=== PATIENT | female | born 1955 | race African-American/Black ===

== ENCOUNTER → 2016-08-07 | Outpatient (CLI) | payer OTHER ==
[~2016-08-07] MED LIST: ACETAMINOPHEN325 M1 PO; ALAGESIC CAPSU1 EACH PO; ALER-CAP25 M2 PO; AMBIEN5 MG PO; AMLODIPINE BES2.5 MG PO; ASPIR 8181 M1 PO; ATIVAN1 MG PO; ATIVAN2 MG/1 ML IM; AZATHIOPRINE50 MG PO; B12 IM; BETIMOL 0.100 DROP/5 BOTH EYES; CALCIDOL8000 UNIT/ PO; CALCIUM ACETAT667 MG PO; CARVEDILOL25 MG PO; CATAPRES0.3 MG PO; CEROVITE237 ML PO; CERTA-VITE240 ML PO; CERTAVITE SR W1 EACH PO; CERTAVITE WITH1 EAC1 PO; CILOXAN 0.100 DROP/5 LEFT EYE; CIPRO500 MG PO; CLEARLAX510 GM PO; CLINDAMYCIN HC300 MG PO; COL-RITE100 M1 PO; COLACE50 MG PO; COUMADIN,JANTO7.5 MG PO; COUMADIN10 MG PO; COUMADIN3 MG PO; COUMADIN4 MG PO; COUMADIN5 MG; COUMADIN5 MG PO; COUMADIN7.5 MG PO; CYANOCOBALAM1000 MCG PO; CYMBALTA60 MG PO; Coumadin Protocol PO; Coumadin,Jantoven PO; Cymbalta PO; DANTROLENE SODI PO; DEPAKOTE ER (E250 MG PO; DEPAKOTE ER500 MG PO; DEPAKOTE250 MG PO; Depakote PO; EFFEXOR XR150 MG PO; ELAVIL10 MG PO; EMLA 30 GM30 GM TP; ESCITALOPRAM OX10 MG PO; FLECTOR 1.3%1 PATC1 TD; FLORICAL CAPSU1 EACH PO; FOLIC ACID PO; FUROSEMIDE80 MG PO; GLYCOPYRROLATE1 MG PO; HUMALOG100 UNIT/1 SC; HYDRALAZINE HCL50 MG PO; HYDROCHLOROTH12.5 M3 PO; HYDROXYZINE HCL25 MG PO; K-DUR20 MEQ PO; KLONOPIN0.5 M1 PO; KLONOPIN1 MG PO; LAMICTAL100 MG PO; LAMICTAL200 MG PO; LASIX10 MG/ML PO; LASIX20 MG/2 ML IM; LATANOPROST2.5 ML BOTH EYES; LAXATIVE SUPPOS10 MG PR; LEVEMIR100 UNIT/2 SC; LEXAPRO20 MG PO; LIDODERM 5% P1 PATCH TD; LOPRESSOR50 MG PO; LOSARTAN POTASS50 MG PO; LYRICA150 MG PO; LaMICtal PO; Levaquin PO; MAXIPIME1 GM IV; METHYLPREDNISOLO4 M1 PO; METOLAZONE5 MG PO; METOPROLOL TART50 MG PO; MILK OF MAGNESI10 ML PO; MOBIC15 MG PO; NAPROSYN500 MG PO; NEURONTIN100 MG PO; NEURONTIN300 MG PO; NORVASC5 MG PO; Neurontin PO; OXECTA5 MG PO; PAIN RELIE500 MG/15 PO; PLAVIX75 MG PO; PRAVACHOL40 MG PO; PRAVASTATIN SOD20 MG PO; PREDNISONE20 MG PO; PREDNISONE5 MG PO; PREPARATION H O28 GM PR; PROAIR HFA8.5 GM IH; PROMETHAZINE HC25 M1 PO; PROTONIX40 MG PO; QUESTRAN4 GM/PACKE PO; REGLAN10 MG/10 M PO; REMERON15 M2 PO; REMERON30 M2 PO; REPAN 50-325-41 EAC1 PO; RISPERDAL1 MG PO; ROBINUL1 MG PO; ROXICODONE5 MG PO; SENNA PLUS TAB1 EACH PO; SENNA S TABLET1 EACH PO; TEGRETOL-XR,CA400 MG PO; TEGRETOL100 MG/5 M PO; TEGRETOL200 MG PO; TEGretol PO; TRAMADOL HCL100 MG PO; TRAMADOL HCL50 MG PO; TUCKS1 EAC1 TP; TYLENOL REGULA325 MG PO; VENLAFAXINE HC150 M1 PO; VICODIN,LORT1 TABLET PO; VITAMIN B-1100 MG PO; VITAMIN D32000 UNIT PO; WARFARIN SODIU7.5 MG PO; WARFARIN SODIUM1 MG PO; WARFARIN SODIUM10 MG PO; Xanax PO; ZANAFLEX4 M1 PO; ZANTAC15 MG/ML PO; ZESTORETIC,P1 TABLET PO; ZIPRASIDONE HCL40 MG PO; ZOCOR10 MG; ZOFRAN ODT4 MG PO; ZOFRAN4 MG PO; ZONEGRAN100 M1 PO; ZONEGRAN100 MG PO; ZONISAMIDE100 MG PO; Zonegran PO; risperDAL PO
== END ==
LOC: RAD 11:00
DX: J98.11 Atelectasis (principal); I70.90 Unspecified atherosclerosis; M47.9 Spondylosis, unspecified; Z96.89 Presence of other specified functional implants
CPT/HCPCS: 71250

== ENCOUNTER 2017-01-03 11:58 | Inpatient (IN) | payer OTHER ==
[~2017-01-03] VITALS: Ht 162.6 cm; Wt 111.0 kg
[2017-01-03] VITALS (19 sets, daily range): BP systolic 79–140; BP diastolic 49–93
[2017-01-03 12:51] LABS: CHLORIDE 106 mEq/L (99-109); HEMATOCRIT 19.9 % (36.0-46.0); MCH 28.6 PG (29.0-34.0); MCHC 29.1 G/DL (30.0-36.0); MEAN PLAT.VOLUME 11.7 uM^3 (9.5-12.4); NRBC (%) 1.1 /100 WBC (0-0); PLATELET COUNT 350 K/uL (156-360); POTASSIUM 5.8 mEq/L (3.7-5.4); RBC DIS.WIDTH-CV 14.5 % (11.8-14.6); RBC DIS.WIDTH-SD 51.6 % (39-53); RED BLOOD COUNT 2.03 M/uL (3.80-5.20); SODIUM 138 mEq/L (136-147); WHITE BLOOD COUNT 15.8 K/uL (4.1-10.2)
[2017-01-03 12:52] LABS: CARBON DIOXIDE (BICARBONATE) 19.4 MEQ/L (20-31)
[2017-01-03 12:53] LABS: GLUCOSE 110 mg/dL (70-99)
[2017-01-03 12:54] LABS: ANION GAP 16 MEQ/L (2-14)
[2017-01-03 12:57] LABS: GFR ESTIMATE (CALCULATED) 18 mL/min/; UREA NITROGEN (BUN) 48 mg/dL (9-23)
[2017-01-03 13:03] LABS: TROP-I INTERPRETATION INDETERMINATE; TROPONIN-I 0.48 ng/mL (0.0-0.30)
[2017-01-03 13:43] LABS: ADD MIUA? YES; BILIRUBIN NEGATIVE; BLOOD NEGATIVE; COLOR AMBER ((YELLOW)); GLUCOSE (STRIP) NEGATIVE; KETONES NEGATIVE; LEUKOCYTES TRACE; NITRITE NEGATIVE; PROTEIN (STRIP) NEGATIVE; SPECIFIC GRAVITY 1.021 (1.000-1.030)
[2017-01-03 13:51] LABS: BACTERIA RARE /HPF; CALCIUM OXALATE CRYSTALS 3+ /HPF; EPITHELIAL CELLS RARE /HPF; MUCUS TRACE /LPF; UCUL ADDED? YES
[2017-01-03 14:16] LABS: INTER. NORMALIZED RATIO 1.7; PROTHROMBIN TIME 18.5 SEC (10.2-12.9)
[2017-01-03 14:19] LABS: PTT 96.2 SEC (25-37)
[2017-01-03 14:36] LABS: POINT-OF-CARE METER ID UU13113747
[2017-01-03] MEDS ORDERED: NEURONTIN100 MG PO (15:22)
[2017-01-03] MEDS ORDERED: RISPERDAL3 MG PO (15:23)
[2017-01-03] MEDS ORDERED: ZONEGRAN100 MG PO (15:27)
[2017-01-03] MEDS ORDERED: EFFEXOR75 MG PO (15:27)
[2017-01-03] MEDS ORDERED: PRAVACHOL20 MG PO (15:28)
[2017-01-03] MEDS ORDERED: LOVENOX120 MG/0.8 SC (15:35)
[2017-01-03] MEDS ORDERED: MYSOLINE50 MG PO (15:37)
[2017-01-03] MEDS ORDERED: IMURAN50 MG PO (15:37)
[2017-01-03] MEDS ORDERED: ROXICODONE5 MG PO (15:38)
[2017-01-03] MEDS ORDERED: NORVASC5 MG PO (15:42)
[2017-01-03] MEDS ORDERED: DIAZEPAM2 MG PO (15:43)
[2017-01-03] MEDS ORDERED: ARTIFICIAL TEAR15 M1 BOTH EYES (15:44)
[2017-01-03] MEDS ORDERED: APRESOLINE25 MG PO (15:45)
[2017-01-03 17:53] LABS: EOSINOPHIL (%) 0 % (0-5); HEMATOCRIT 23.8 % (36.0-46.0); IMMATURE GRANULOCYTE (%) 1.3 % (0.0-0.7); IMMATURE GRANULOCYTE COUNT 0.3 K/uL; INSTRUMENT ABS NEUTROPHIL CT 20.2 K/uL; LYMPHOCYTE COUNT 0.9 K/uL (1.0-2.8); MCH 30.3 PG (29.0-34.0); MCHC 30.7 G/DL (30.0-36.0); MCV 98.8 FL (83-99); MEAN PLAT.VOLUME 11.6 uM^3 (9.5-12.4); MONOCYTE (%) 12.6 % (3-12); MONOCYTE COUNT 3.1 K/uL (0-0.8); NEUTROPHIL (%) 82.4 % (45-76); NEUTROPHIL COUNT 20.2 K/uL (1.8-6.4); NRBC (%) 0.8 /100 WBC (0-0); PLATELET COUNT 296 K/uL (156-360); RBC DIS.WIDTH-CV 14.8 % (11.8-14.6); RBC DIS.WIDTH-SD 53.2 % (39-53); RED BLOOD COUNT 2.41 M/uL (3.80-5.20); WHITE BLOOD COUNT 24.5 K/uL (4.1-10.2)
[2017-01-03 18:01] LABS: FIBRINOGEN 710 mg/dL (150-450)
[2017-01-03 18:10] LABS: ALKALINE PHOSPHATASE 46 IU/L (3-129); ANION GAP 16 MEQ/L (2-14); CHLORIDE 107 MEQ/L (99-109); GLUCOSE 129 mg/dL (70-99); POTASSIUM 5.2 MEQ/L (3.7-5.4); SAMPLE HEMOLYSIS CHECK 0; SAMPLE ICTERIC CHECK 0; SAMPLE LIPEMIA CHECK 0; SODIUM 139 MEQ/L (136-147); TOTAL BILIRUBIN 0.5 MG/DL (0.0-1.0); UREA NITROGEN (BUN) 47 mg/dL (9-23)
[2017-01-03 18:15] LABS: GFR ESTIMATE (CALCULATED) 24 mL/min/
[2017-01-03 18:21] LABS: METH RESISTANT S AUREUS PCR NEGATIVE (NEGATIVE)
[2017-01-03 18:22] LABS: PROBE CHECK PASS; SPECIMEN PROCESSING CONTROL PASS
[2017-01-03 18:39] LABS: INTER. NORMALIZED RATIO 1.5; PROTHROMBIN TIME 16.6 SEC (10.2-12.9)
[2017-01-03 18:52] LABS: PTT 41.4 SEC (25-37)
[2017-01-03 18:54] LABS: POINT-OF-CARE METER ID UU13113731; POINT-OF-CARE USER ID 609231305
[2017-01-03 21:43] LABS: HEMATOCRIT 29.9 % (36.0-46.0); MCH 30.1 PG (29.0-34.0); MCHC 30.8 G/DL (30.0-36.0); MCV 97.7 FL (83-99); NRBC (%) 0.8 /100 WBC (0-0); PLATELET COUNT 303 K/uL (156-360); RBC DIS.WIDTH-CV 14.9 % (11.8-14.6); RBC DIS.WIDTH-SD 53.2 % (39-53); WHITE BLOOD COUNT 21.4 K/uL (4.1-10.2)
[2017-01-03 21:50] LABS: RED BLOOD COUNT 3.06 M/uL (3.80-5.20)
[2017-01-03 22:20] LABS: ANION GAP 16 MEQ/L (2-14); CHLORIDE 108 MEQ/L (99-109); GFR ESTIMATE (CALCULATED) 27 mL/min/; GLUCOSE 121 mg/dL (70-99); POTASSIUM 5.2 MEQ/L (3.7-5.4); SAMPLE HEMOLYSIS CHECK 0; SAMPLE ICTERIC CHECK 0; SAMPLE LIPEMIA CHECK 0; SODIUM 141 MEQ/L (136-147); UREA NITROGEN (BUN) 47 mg/dL (9-23)
[2017-01-03 22:24] LABS: ERTH.SED.RATE 78 MM/HR (0-30)
[2017-01-04] VITALS (35 sets, daily range): BP systolic 110–167; BP diastolic 51–88
[2017-01-04 00:02] LABS: POINT-OF-CARE METER ID UU13113748; POINT-OF-CARE USER ID LABHNS84
[2017-01-04 05:57] LABS: ANION GAP 11 MEQ/L (2-14); CHLORIDE 111 MEQ/L (99-109); GFR ESTIMATE (CALCULATED) 49 mL/min/; GLUCOSE 121 mg/dL (70-99); SAMPLE HEMOLYSIS CHECK 0; SAMPLE ICTERIC CHECK 0; SAMPLE LIPEMIA CHECK 0; SODIUM 144 MEQ/L (136-147); UREA NITROGEN (BUN) 42 mg/dL (9-23)
[2017-01-04 06:21] LABS: EOSINOPHIL (%) 0 % (0-5); HEMATOCRIT 21.9 % (36.0-46.0); IMMATURE GRANULOCYTE (%) 0.9 % (0.0-0.7); IMMATURE GRANULOCYTE COUNT 0.2 K/uL; INSTRUMENT ABS NEUTROPHIL CT 15.4 K/uL; LYMPHOCYTE COUNT 0.6 K/uL (1.0-2.8); MCH 29.7 PG (29.0-34.0); MCHC 31.5 G/DL (30.0-36.0); MCV 94.4 FL (83-99); MEAN PLAT.VOLUME 12.5 uM^3 (9.5-12.4); MONOCYTE (%) 10.2 % (3-12); MONOCYTE COUNT 1.8 K/uL (0-0.8); NEUTROPHIL (%) 85.4 % (45-76); NEUTROPHIL COUNT 15.4 K/uL (1.8-6.4); NRBC (%) 1.9 /100 WBC (0-0); PLATELET COUNT 242 K/uL (156-360); RED BLOOD COUNT 2.32 M/uL (3.80-5.20)
[2017-01-04 06:55] LABS: INTER. NORMALIZED RATIO 1.3; PROTHROMBIN TIME 14.3 SEC (10.2-12.9)
[2017-01-04 06:58] LABS: PTT 37.4 SEC (25-37)
[2017-01-04 07:41] LABS: Estimated Average Glucose 114 mg/dL (70-123); HEMOGLOBIN A1c (GLYCOHEMOGLOB) 5.6 % HGB (Below 5.7)
[2017-01-04 12:11] LABS: POINT-OF-CARE METER ID UU14174217
[2017-01-04 14:51] LABS: HEMATOCRIT 25.7 % (36.0-46.0); MCH 30.7 PG (29.0-34.0); MCHC 33.5 G/DL (30.0-36.0); MCV 91.8 FL (83-99); MEAN PLAT.VOLUME 11.2 uM^3 (9.5-12.4); NRBC (%) 2.9 /100 WBC (0-0); PLATELET COUNT 232 K/uL (156-360); RBC DIS.WIDTH-CV 15.1 % (11.8-14.6); RBC DIS.WIDTH-SD 50.5 % (39-53); WHITE BLOOD COUNT 14.6 K/uL (4.1-10.2)
[2017-01-04 15:29] LABS: ANION GAP 9 MEQ/L (2-14); CHLORIDE 112 MEQ/L (99-109); GLUCOSE 114 mg/dL (70-99); POTASSIUM 4.8 MEQ/L (3.7-5.4); SAMPLE HEMOLYSIS CHECK 0; SAMPLE ICTERIC CHECK 0; SAMPLE LIPEMIA CHECK 0; SODIUM 145 MEQ/L (136-147); UREA NITROGEN (BUN) 33 mg/dL (9-23)
[2017-01-04 15:30] LABS: GFR ESTIMATE (CALCULATED) > 59 mL/min/; VANCOMYCIN, TROUGH 5.6 MCG/ML (10-20)
[2017-01-04 17:47] LABS: INTER. NORMALIZED RATIO 1.2; PROTHROMBIN TIME 13.7 SEC (10.2-12.9)
[2017-01-04 17:49] LABS: PTT 33.2 SEC (25-37)
[2017-01-04 18:38] LABS: POINT-OF-CARE METER ID UU14314082
[2017-01-04 22:29] LABS: POINT-OF-CARE METER ID UU14314082; POINT-OF-CARE USER ID LABHNS84
[2017-01-04 23:27] LABS: HEMATOCRIT 22.6 % (36.0-46.0); MCH 29.4 PG (29.0-34.0); MCHC 32.7 G/DL (30.0-36.0); MCV 89.7 FL (83-99); MEAN PLAT.VOLUME 10.6 uM^3 (9.5-12.4); NRBC (%) 2.9 /100 WBC (0-0); PLATELET COUNT 215 K/uL (156-360); RBC DIS.WIDTH-CV 15.5 % (11.8-14.6); RBC DIS.WIDTH-SD 50.1 % (39-53); RED BLOOD COUNT 2.52 M/uL (3.80-5.20); WHITE BLOOD COUNT 13.7 K/uL (4.1-10.2)
[2017-01-04 23:35] LABS: POINT-OF-CARE METER ID UU14314082; POINT-OF-CARE USER ID LABHNS84
[2017-01-05] VITALS (23 sets, daily range): BP systolic 124–182; BP diastolic 69–100
[2017-01-05 05:59] LABS: EOSINOPHIL (%) 0.1 % (0-5); HEMATOCRIT 21.4 % (36.0-46.0); IMMATURE GRANULOCYTE (%) 0.8 % (0.0-0.7); IMMATURE GRANULOCYTE COUNT 0.1 K/uL; INSTRUMENT ABS NEUTROPHIL CT 11.4 K/uL; LYMPHOCYTE COUNT 0.5 K/uL (1.0-2.8); MCH 30.9 PG (29.0-34.0); MCHC 33.6 G/DL (30.0-36.0); MCV 91.8 FL (83-99); MEAN PLAT.VOLUME 11.4 uM^3 (9.5-12.4); MONOCYTE (%) 8.2 % (3-12); MONOCYTE COUNT 1.1 K/uL (0-0.8); NEUTROPHIL COUNT 11.4 K/uL (1.8-6.4); NRBC (%) 2.5 /100 WBC (0-0); PLATELET COUNT 221 K/uL (156-360); RBC DIS.WIDTH-CV 15.9 % (11.8-14.6); RBC DIS.WIDTH-SD 52.3 % (39-53); RED BLOOD COUNT 2.33 M/uL (3.80-5.20); WHITE BLOOD COUNT 13.1 K/uL (4.1-10.2)
[2017-01-05 06:42] LABS: ANION GAP 9 MEQ/L (2-14); CHLORIDE 115 MEQ/L (99-109); GFR ESTIMATE (CALCULATED) > 59 mL/min/; GLUCOSE 103 mg/dL (70-99); POTASSIUM 4.6 MEQ/L (3.7-5.4); SAMPLE HEMOLYSIS CHECK 0; SAMPLE ICTERIC CHECK 0; SAMPLE LIPEMIA CHECK 0; SODIUM 147 MEQ/L (136-147); UREA NITROGEN (BUN) 23 mg/dL (9-23)
[2017-01-05 11:28] LABS: POINT-OF-CARE METER ID UU14162636
[2017-01-05 17:08] LABS: POINT-OF-CARE METER ID UU13113803
[2017-01-05 20:03] LABS: INTER. NORMALIZED RATIO 1.2; PROTHROMBIN TIME 12.7 SEC (10.2-12.9); PTT 33.8 SEC (25-37)
[2017-01-05 20:22] LABS: HEMATOCRIT 24.4 % (36.0-46.0); MCV 90.7 FL (83-99)
[2017-01-05 22:34] LABS: POINT-OF-CARE METER ID UU14314083; POINT-OF-CARE USER ID RADDRS44
[2017-01-06] VITALS (8 sets, daily range): BP systolic 95–142; BP diastolic 53–73
[2017-01-06 05:14] LABS: EOSINOPHIL (%) 0.2 % (0-5); HEMATOCRIT 24.8 % (36.0-46.0); IMMATURE GRANULOCYTE (%) 0.6 % (0.0-0.7); IMMATURE GRANULOCYTE COUNT 0.1 K/uL; INSTRUMENT ABS NEUTROPHIL CT 8.4 K/uL; LYMPHOCYTE COUNT 0.6 K/uL (1.0-2.8); MCH 30.4 PG (29.0-34.0); MCHC 33.5 G/DL (30.0-36.0); MCV 90.8 FL (83-99); MONOCYTE (%) 9.7 % (3-12); NEUTROPHIL (%) 83.8 % (45-76); NEUTROPHIL COUNT 8.4 K/uL (1.8-6.4); NRBC (%) 1.8 /100 WBC (0-0); PLATELET COUNT 184 K/uL (156-360); RBC DIS.WIDTH-CV 16.7 % (11.8-14.6); RBC DIS.WIDTH-SD 53.7 % (39-53); RED BLOOD COUNT 2.73 M/uL (3.80-5.20); WHITE BLOOD COUNT 10.1 K/uL (4.1-10.2)
[2017-01-06 05:45] LABS: ANION GAP 11 MEQ/L (2-14); CHLORIDE 108 MEQ/L (99-109); GFR ESTIMATE (CALCULATED) > 59 mL/min/; GLUCOSE 92 mg/dL (70-99); MAGNESIUM 1.9 mg/dl (1.3-2.7); SAMPLE HEMOLYSIS CHECK 0; SAMPLE ICTERIC CHECK 0; SAMPLE LIPEMIA CHECK 0; SODIUM 142 MEQ/L (136-147); UREA NITROGEN (BUN) 14 mg/dL (9-23)
[2017-01-06 07:47] LABS: ALKALINE PHOSPHATASE 47 IU/L (3-129); ANION GAP 10 MEQ/L (2-14); CHLORIDE 109 MEQ/L (99-109); DIRECT BILIRUBIN 0.1 mg/dL (0.0-0.3); GFR ESTIMATE (CALCULATED) > 59 mL/min/; GLUCOSE 90 mg/dL (70-99); POTASSIUM 4.1 MEQ/L (3.7-5.4); SODIUM 142 MEQ/L (136-147); UREA NITROGEN (BUN) 14 mg/dL (9-23)
[2017-01-06 07:48] LABS: TOTAL BILIRUBIN 0.7 MG/DL (0.0-1.0)
[2017-01-06 12:28] LABS: POINT-OF-CARE METER ID UU13113731
[2017-01-06 17:45] LABS: POINT-OF-CARE METER ID UU13113803
[2017-01-06 17:49] LABS: INTER. NORMALIZED RATIO 1.1; PROTHROMBIN TIME 11.8 SEC (10.2-12.9)
[2017-01-06 17:52] LABS: PTT 27.8 SEC (25-37)
[2017-01-06 20:50] LABS: HEMATOCRIT 25.7 % (36.0-46.0); MCV 92.8 FL (83-99)
[2017-01-06 21:54] LABS: POINT-OF-CARE METER ID UU13113731
[2017-01-07 03:51] VITALS: BP 120/64
[2017-01-07 05:51] LABS: EOSINOPHIL (%) 0.6 % (0-5); EOSINOPHIL COUNT 0.1 K/uL (0-0.3); HEMATOCRIT 25.4 % (36.0-46.0); IMMATURE GRANULOCYTE (%) 0.8 % (0.0-0.7); IMMATURE GRANULOCYTE COUNT 0.1 K/uL; INSTRUMENT ABS NEUTROPHIL CT 6.9 K/uL; LYMPHOCYTE COUNT 0.6 K/uL (1.0-2.8); MCH 29.9 PG (29.0-34.0); MCHC 32.3 G/DL (30.0-36.0); MCV 92.7 FL (83-99); MEAN PLAT.VOLUME 11.3 uM^3 (9.5-12.4); MONOCYTE (%) 10.2 % (3-12); MONOCYTE COUNT 0.9 K/uL (0-0.8); NEUTROPHIL (%) 81.3 % (45-76); NEUTROPHIL COUNT 6.9 K/uL (1.8-6.4); NRBC (%) 1.1 /100 WBC (0-0); PLATELET COUNT 206 K/uL (156-360); RBC DIS.WIDTH-CV 16.4 % (11.8-14.6); RED BLOOD COUNT 2.74 M/uL (3.80-5.20); WHITE BLOOD COUNT 8.4 K/uL (4.1-10.2)
[2017-01-07 06:18] LABS: ANION GAP 8 MEQ/L (2-14); CHLORIDE 109 MEQ/L (99-109); GFR ESTIMATE (CALCULATED) > 59 mL/min/; GLUCOSE 88 mg/dL (70-99); MAGNESIUM 1.9 mg/dl (1.3-2.7); SAMPLE HEMOLYSIS CHECK 0; SAMPLE ICTERIC CHECK 0; SAMPLE LIPEMIA CHECK 0; SODIUM 143 MEQ/L (136-147); UREA NITROGEN (BUN) 12 mg/dL (9-23)
[2017-01-07 06:59] LABS: POINT-OF-CARE METER ID UU14208750
[2017-01-07 07:35] VITALS: BP 126/66
[2017-01-07 11:25] VITALS: BP 128/60
[2017-01-07 12:46] LABS: POINT-OF-CARE METER ID UU14314084
[2017-01-07 15:38] VITALS: BP 118/67; BP 99/60
[2017-01-07 16:47] LABS: POINT-OF-CARE METER ID UU14314084
[2017-01-07 17:58] LABS: INTER. NORMALIZED RATIO 1.1; PROTHROMBIN TIME 12.1 SEC (10.2-12.9)
[2017-01-07 18:01] LABS: PTT 27.6 SEC (25-37)
[2017-01-07 19:59] VITALS: BP 100/52
[2017-01-07 22:24] LABS: POINT-OF-CARE METER ID UU14208750
[2017-01-08] VITALS (7 sets, daily range): BP systolic 108–127; BP diastolic 50–70
[2017-01-08 06:35] LABS: POINT-OF-CARE METER ID UU14314084
[2017-01-08 07:13] LABS: EOSINOPHIL (%) 1.1 % (0-5); EOSINOPHIL COUNT 0.1 K/uL (0-0.3); HEMATOCRIT 25.5 % (36.0-46.0); IMMATURE GRANULOCYTE (%) 0.8 % (0.0-0.7); IMMATURE GRANULOCYTE COUNT 0.1 K/uL; INSTRUMENT ABS NEUTROPHIL CT 6.7 K/uL; LYMPHOCYTE COUNT 0.5 K/uL (1.0-2.8); MCH 28.6 PG (29.0-34.0); MCV 92.4 FL (83-99); MEAN PLAT.VOLUME 11.4 uM^3 (9.5-12.4); NEUTROPHIL (%) 79.6 % (45-76); NEUTROPHIL COUNT 6.7 K/uL (1.8-6.4); NRBC (%) 0.6 /100 WBC (0-0); PLATELET COUNT 235 K/uL (156-360); RBC DIS.WIDTH-CV 15.8 % (11.8-14.6); RBC DIS.WIDTH-SD 52.3 % (39-53); RED BLOOD COUNT 2.76 M/uL (3.80-5.20); WHITE BLOOD COUNT 8.5 K/uL (4.1-10.2)
[2017-01-08 07:31] LABS: ANION GAP 8 MEQ/L (2-14); CHLORIDE 106 MEQ/L (99-109); GFR ESTIMATE (CALCULATED) > 59 mL/min/; GLUCOSE 92 mg/dL (70-99); POTASSIUM 3.9 MEQ/L (3.7-5.4); SAMPLE HEMOLYSIS CHECK 0; SAMPLE ICTERIC CHECK 0; SAMPLE LIPEMIA CHECK 0; SODIUM 139 MEQ/L (136-147); UREA NITROGEN (BUN) 10 mg/dL (9-23)
[2017-01-08 11:06] LABS: POINT-OF-CARE METER ID UU14314084; POINT-OF-CARE USER ID PUTDRM
[2017-01-08 15:57] LABS: POINT-OF-CARE METER ID UU14314084; POINT-OF-CARE USER ID PUTDRM
[2017-01-08 21:17] LABS: POINT-OF-CARE METER ID UU14314084
[2017-01-09 03:39] VITALS: BP 117/63
[2017-01-09 05:48] LABS: EOSINOPHIL (%) 0.9 % (0-5); EOSINOPHIL COUNT 0.1 K/uL (0-0.3); HEMATOCRIT 24.5 % (36.0-46.0); IMMATURE GRANULOCYTE (%) 1.3 % (0.0-0.7); IMMATURE GRANULOCYTE COUNT 0.1 K/uL; INSTRUMENT ABS NEUTROPHIL CT 6.9 K/uL; LYMPHOCYTE COUNT 0.7 K/uL (1.0-2.8); MCH 28.9 PG (29.0-34.0); MCV 93.2 FL (83-99); MEAN PLAT.VOLUME 11.7 uM^3 (9.5-12.4); NEUTROPHIL (%) 78.3 % (45-76); NEUTROPHIL COUNT 6.9 K/uL (1.8-6.4); NRBC (%) 0.5 /100 WBC (0-0); PLATELET COUNT 266 K/uL (156-360); RBC DIS.WIDTH-CV 15.4 % (11.8-14.6); RBC DIS.WIDTH-SD 50.6 % (39-53); RED BLOOD COUNT 2.63 M/uL (3.80-5.20); WHITE BLOOD COUNT 8.8 K/uL (4.1-10.2)
[2017-01-09 05:54] LABS: POINT-OF-CARE METER ID UU14314084
[2017-01-09 06:13] LABS: ANION GAP 8 MEQ/L (2-14); CHLORIDE 107 MEQ/L (99-109); GFR ESTIMATE (CALCULATED) > 59 mL/min/; GLUCOSE 85 mg/dL (70-99); POTASSIUM 3.7 MEQ/L (3.7-5.4); SAMPLE HEMOLYSIS CHECK 0; SAMPLE ICTERIC CHECK 0; SAMPLE LIPEMIA CHECK 0; SODIUM 140 MEQ/L (136-147); UREA NITROGEN (BUN) 8 mg/dL (9-23)
[2017-01-09 08:21] VITALS: BP 108/58
[2017-01-09 12:06] LABS: POINT-OF-CARE METER ID UU14314084
[2017-01-09 16:30] VITALS: BP 102/58
[2017-01-09 16:42] LABS: POINT-OF-CARE METER ID UU14314084
[2017-01-09 22:02] LABS: POINT-OF-CARE METER ID UU14314084
[2017-01-10 00:14] VITALS: BP 134/65
[2017-01-10 07:15] LABS: MCH 28.7 PG (29.0-34.0); MCHC 30.4 G/DL (30.0-36.0); MCV 94.5 FL (83-99); MEAN PLAT.VOLUME 12.1 uM^3 (9.5-12.4); NRBC (%) 0.3 /100 WBC (0-0); PLATELET COUNT 327 K/uL (156-360); RBC DIS.WIDTH-CV 15.2 % (11.8-14.6); RBC DIS.WIDTH-SD 51.1 % (39-53); RED BLOOD COUNT 2.54 M/uL (3.80-5.20); WHITE BLOOD COUNT 9.3 K/uL (4.1-10.2)
[2017-01-10 08:43] LABS: POINT-OF-CARE METER ID UU14314084
[2017-01-10 08:44] VITALS: BP 110/58
[2017-01-10 12:00] LABS: POINT-OF-CARE METER ID UU14314084
[2017-01-10 13:13] VITALS: BP 102/54
[2017-01-10 15:15] LABS: POINT-OF-CARE METER ID UU14314084
[2017-01-10 15:53] VITALS: BP 128/58
[2017-01-10 21:29] LABS: POINT-OF-CARE METER ID UU14208750
[2017-01-10 23:48] VITALS: BP 110/58
[2017-01-11 06:30] LABS: POINT-OF-CARE METER ID UU14208750
[2017-01-11 07:12] LABS: EOSINOPHIL (%) 0.8 % (0-5); EOSINOPHIL COUNT 0.1 K/uL (0-0.3); HEMATOCRIT 24.7 % (36.0-46.0); IMMATURE GRANULOCYTE COUNT 0.2 K/uL; INSTRUMENT ABS NEUTROPHIL CT 8.1 K/uL; LYMPHOCYTE COUNT 0.7 K/uL (1.0-2.8); MCHC 31.6 G/DL (30.0-36.0); MEAN PLAT.VOLUME 10.7 uM^3 (9.5-12.4); MONOCYTE (%) 11.4 % (3-12); MONOCYTE COUNT 1.2 K/uL (0-0.8); NEUTROPHIL COUNT 8.1 K/uL (1.8-6.4); NRBC (%) 0.3 /100 WBC (0-0); PLATELET COUNT 403 K/uL (156-360); RBC DIS.WIDTH-CV 15.3 % (11.8-14.6); RBC DIS.WIDTH-SD 51.9 % (39-53); WHITE BLOOD COUNT 10.3 K/uL (4.1-10.2)
[2017-01-11 08:01] VITALS: BP 126/68
[2017-01-11 15:58] VITALS: BP 122/64
[2017-01-11 16:37] LABS: POINT-OF-CARE METER ID UU14208750
[2017-01-11 22:10] LABS: POINT-OF-CARE METER ID UU14208750
[2017-01-11 23:20] VITALS: BP 120/75
[2017-01-12 06:28] LABS: POINT-OF-CARE METER ID UU14208750
[2017-01-12 07:24] LABS: EOSINOPHIL COUNT 0.1 K/uL (0-0.3); HEMATOCRIT 25.8 % (36.0-46.0); IMMATURE GRANULOCYTE (%) 1.5 % (0.0-0.7); IMMATURE GRANULOCYTE COUNT 0.2 K/uL; INSTRUMENT ABS NEUTROPHIL CT 8.1 K/uL; LYMPHOCYTE COUNT 0.7 K/uL (1.0-2.8); MCH 28.6 PG (29.0-34.0); MCHC 30.2 G/DL (30.0-36.0); MCV 94.5 FL (83-99); MONOCYTE (%) 10.6 % (3-12); MONOCYTE COUNT 1.1 K/uL (0-0.8); NEUTROPHIL COUNT 8.1 K/uL (1.8-6.4); NRBC (%) 0.2 /100 WBC (0-0); PLATELET COUNT 438 K/uL (156-360); RBC DIS.WIDTH-CV 15.3 % (11.8-14.6); RBC DIS.WIDTH-SD 51.8 % (39-53); RED BLOOD COUNT 2.73 M/uL (3.80-5.20); WHITE BLOOD COUNT 10.1 K/uL (4.1-10.2)
[2017-01-12 08:22] VITALS: BP 115/55
[2017-01-12 12:21] LABS: POINT-OF-CARE METER ID UU14208750
[2017-01-12 16:13] VITALS: BP 118/58
[2017-01-12 17:10] LABS: POINT-OF-CARE METER ID UU14208750
[2017-01-12 21:45] LABS: POINT-OF-CARE METER ID UU14208750
[2017-01-13 00:20] VITALS: BP 141/60
[2017-01-13 06:34] LABS: POINT-OF-CARE METER ID UU14208750
[2017-01-13 07:15] LABS: EOSINOPHIL COUNT 0.1 K/uL (0-0.3); HEMATOCRIT 25.9 % (36.0-46.0); IMMATURE GRANULOCYTE (%) 1.4 % (0.0-0.7); IMMATURE GRANULOCYTE COUNT 0.1 K/uL; INSTRUMENT ABS NEUTROPHIL CT 8.1 K/uL; LYMPHOCYTE COUNT 0.7 K/uL (1.0-2.8); MCH 28.6 PG (29.0-34.0); MCHC 30.1 G/DL (30.0-36.0); MCV 94.9 FL (83-99); MONOCYTE (%) 9.5 % (3-12); NEUTROPHIL COUNT 8.1 K/uL (1.8-6.4); PLATELET COUNT 470 K/uL (156-360); RBC DIS.WIDTH-CV 15.3 % (11.8-14.6); RBC DIS.WIDTH-SD 51.5 % (39-53); RED BLOOD COUNT 2.73 M/uL (3.80-5.20)
[2017-01-13 07:39] VITALS: BP 110/60
[2017-01-13 11:53] LABS: POINT-OF-CARE METER ID UU14208750
[2017-01-13 16:00] LABS: POINT-OF-CARE METER ID UU14208750
[2017-01-13 16:12] VITALS: BP 112/63
[2017-01-13 21:06] LABS: POINT-OF-CARE METER ID UU14208750
[2017-01-13 23:31] VITALS: BP 110/59
[2017-01-14 06:49] LABS: POINT-OF-CARE METER ID UU14208750
[2017-01-14 08:29] LABS: HEMATOCRIT 25.6 % (36.0-46.0); MCH 29.5 PG (29.0-34.0); MCHC 30.9 G/DL (30.0-36.0); MCV 95.5 FL (83-99); MEAN PLAT.VOLUME 10.9 uM^3 (9.5-12.4); PLATELET COUNT 514 K/uL (156-360); RBC DIS.WIDTH-CV 15.7 % (11.8-14.6); RBC DIS.WIDTH-SD 53.8 % (39-53); RED BLOOD COUNT 2.68 M/uL (3.80-5.20); WHITE BLOOD COUNT 9.5 K/uL (4.1-10.2)
[2017-01-14 09:00] VITALS: BP 120/70
[2017-01-14 11:36] LABS: POINT-OF-CARE METER ID UU14162508
[2017-01-14 11:37] LABS: ANION GAP 7 MEQ/L (2-14); CHLORIDE 107 MEQ/L (99-109); GFR ESTIMATE (CALCULATED) > 59 mL/min/; GLUCOSE 96 mg/dL (70-99); POTASSIUM 3.4 MEQ/L (3.7-5.4); SAMPLE HEMOLYSIS CHECK 0; SAMPLE ICTERIC CHECK 0; SAMPLE LIPEMIA CHECK 0; SODIUM 140 MEQ/L (136-147); UREA NITROGEN (BUN) 7 mg/dL (9-23)
[2017-01-14 15:53] VITALS: BP 116/70
[2017-01-14 15:57] LABS: INTER. NORMALIZED RATIO 1.3
[2017-01-14 16:43] LABS: POINT-OF-CARE METER ID UU14162508
[2017-01-14 23:35] LABS: POINT-OF-CARE METER ID UU14208750
[2017-01-14 23:41] VITALS: BP 120/66
[2017-01-15 06:05] LABS: POINT-OF-CARE METER ID UU14208750
[2017-01-15 08:05] VITALS: BP 136/63
[2017-01-15] MEDS ORDERED: LOVENOX100 MG/1 M SC (11:17)
[2017-01-15 11:18] LABS: HEMATOCRIT 26.1 % (36.0-46.0); MCH 29.7 PG (29.0-34.0); MCHC 30.7 G/DL (30.0-36.0); PLATELET COUNT 493 K/uL (156-360); RBC DIS.WIDTH-CV 15.5 % (11.8-14.6); RBC DIS.WIDTH-SD 53.2 % (39-53); RED BLOOD COUNT 2.69 M/uL (3.80-5.20); WHITE BLOOD COUNT 10.5 K/uL (4.1-10.2)
[2017-01-15 11:20] LABS: HEMATOCRIT 26.1 % (36.0-46.0); MCH 29.7 PG (29.0-34.0); MCHC 30.7 G/DL (30.0-36.0); PLATELET COUNT 493 K/uL (156-360); RBC DIS.WIDTH-CV 15.5 % (11.8-14.6); RBC DIS.WIDTH-SD 53.2 % (39-53); RED BLOOD COUNT 2.69 M/uL (3.80-5.20); WHITE BLOOD COUNT 10.5 K/uL (4.1-10.2)
[2017-01-15 11:23] LABS: INTER. NORMALIZED RATIO 1.3; PROTHROMBIN TIME 14.8 SEC (10.2-12.9)
[2017-01-15] MEDS ORDERED: CLONAZEPAM0.5 MG PO (11:29)
[2017-01-15] MEDS ORDERED: ROXICODONE5 MG PO (11:29)
[2017-01-15] MEDS ORDERED: DIAZEPAM2 MG PO (11:29)
[2017-01-15] MEDS ORDERED: COUMADIN2.5 MG PO (11:35)
[2017-01-15 11:45] LABS: ANION GAP 10 MEQ/L (2-14); CHLORIDE 109 MEQ/L (99-109); GFR ESTIMATE (CALCULATED) > 59 mL/min/; GLUCOSE 91 mg/dL (70-99); POTASSIUM 3.7 MEQ/L (3.7-5.4); SAMPLE HEMOLYSIS CHECK 0; SAMPLE ICTERIC CHECK 0; SAMPLE LIPEMIA CHECK 0; SODIUM 142 MEQ/L (136-147); UREA NITROGEN (BUN) 7 mg/dL (9-23)
[2017-01-15 12:04] LABS: POINT-OF-CARE METER ID UU14162508
== END 2017-01-15 14:35 | DRG 811 ==
LOC: EME → EDBD 11:58 → EDOF 14:22 → 4WEST 14:22 → ENRESERV 14:27 → 4WEST 16:14 → ENRESERV 01-06 19:15 → 2EAST 01-06 21:56
PROVIDERS: Emergency Medicine; Hospitalist; Internal Medicine Critical Care Medicine; Internal Medicine Nephrology; Internal Medicine Pulmonary Disease; Specialist; Student in an Organized Health Care Education/Training Program
PROC: 30233K1 Transfusion of Nonautologous Frozen Plasma into Peripheral Vein, Percutaneous Approach (ICD-10-PCS; principal; 2017-01-03)
PROC: 30233N1 Transfusion of Nonautologous Red Blood Cells into Peripheral Vein, Percutaneous Approach (ICD-10-PCS; 2017-01-04)
DX: D62 Acute posthemorrhagic anemia (principal); R57.1 Hypovolemic shock; N17.9 Acute kidney failure, unspecified; G61.0 Guillain-Barre syndrome; E87.2 Acidosis; Z68.41 Body mass index [BMI] 40.0-44.9, adult; G81.91 Hemiplegia, unspecified affecting right dominant side; I10 Essential (primary) hypertension; G47.30 Sleep apnea, unspecified; E66.01 Morbid (severe) obesity due to excess calories; S70.01XA Contusion of right hip, initial encounter; S70.11XA Contusion of right thigh, initial encounter; F32.9 Major depressive disorder, single episode, unspecified; J44.9 Chronic obstructive pulmonary disease, unspecified; K21.9 Gastro-esophageal reflux disease without esophagitis; G40.909 Epilepsy, unspecified, not intractable, without status epilepticus; G82.20 Paraplegia, unspecified; G47.33 Obstructive sleep apnea (adult) (pediatric); Z86.718 Personal history of other venous thrombosis and embolism; Z74.01 Bed confinement status; Z86.711 Personal history of pulmonary embolism; Z79.01 Long term (current) use of anticoagulants
CPT/HCPCS: 70450; 71010; 73700; 74176; 80048; 80048 91; 80053; 80069; 80076; 80202; 81003; 82272; 82803; 82948; 83036; 83605; 83735; 83880; 84484; 85014; 85018; 85025; 85027; 85384; 85610; 85651; 85730; 86850; 86900; 86901; 86920; 87040; 87077; 87081; 87086; 87186; 87641; 93005; 93970; 99281; 99285; C1751; C9113; J0692; J1644; J1650; J1815; J2270; J2597; J3370; J3480; J7030; J7050; J7120; J7500; P9016; P9017; P9040

== ENCOUNTER 2017-02-06 15:48 | Inpatient (IN) | payer OTHER ==
[~2017-02-06] VITALS: Ht 162.6 cm; Wt 109.5 kg
[~2017-02-06 15:48] MED LIST changes: +APRESOLINE25 MG PO; +ARTIFICIAL TEAR15 M1 BOTH EYES; +CLONAZEPAM0.5 MG PO; +COUMADIN2.5 MG PO; +DIAZEPAM2 MG PO; +EFFEXOR75 MG PO; +IMURAN50 MG PO; +LOVENOX100 MG/1 M SC; +LOVENOX120 MG/0.8 SC; +MYSOLINE50 MG PO; +PRAVACHOL20 MG PO; +RISPERDAL3 MG PO
[2017-02-06 16:44] LABS: HEMATOCRIT 33.8 % (36.0-46.0); MCH 28.9 PG (29.0-34.0); MCHC 30.8 G/DL (30.0-36.0); MCV 93.9 FL (83-99); MEAN PLAT.VOLUME 10.8 uM^3 (9.5-12.4); RBC DIS.WIDTH-CV 17.2 % (11.8-14.6); RBC DIS.WIDTH-SD 58.9 % (39-53); WHITE BLOOD COUNT 14.5 K/uL (4.1-10.2)
[2017-02-06 16:45] LABS: CHLORIDE 102 mEq/L (99-109); POTASSIUM 3.1 mEq/L (3.7-5.4); SODIUM 142 mEq/L (136-147)
[2017-02-06 16:47] LABS: GLUCOSE 102 mg/dL (70-99)
[2017-02-06 16:48] LABS: ANION GAP 8 MEQ/L (2-14)
[2017-02-06 16:49] LABS: TOTAL BILIRUBIN 0.5 mg/dL (0.0-1.0)
[2017-02-06 16:51] LABS: ALKALINE PHOSPHATASE 83 IU/L (3-129); GFR ESTIMATE (CALCULATED) > 59 mL/min/; INTER. NORMALIZED RATIO 3.6; PROTHROMBIN TIME 41.5 SEC (10.2-12.9); PTT 44.8 SEC (25-37)
[2017-02-06 16:52] LABS: UREA NITROGEN (BUN) 10 mg/dL (9-23)
[2017-02-06 16:54] LABS: LIPASE 3 U/L (1.0-51.0)
[2017-02-06 17:16] LABS: EOSINOPHIL (%) 0.1 % (0-5); IMMATURE GRANULOCYTE (%) 0.6 % (0.0-0.7); IMMATURE GRANULOCYTE COUNT 0.1 K/uL; INSTRUMENT ABS NEUTROPHIL CT 12.7 K/uL; LYMPHOCYTE COUNT 0.5 K/uL (1.0-2.8); MONOCYTE (%) 8.5 % (3-12); MONOCYTE COUNT 1.2 K/uL (0-0.8); NEUTROPHIL (%) 87.5 % (45-76); NEUTROPHIL COUNT 12.7 K/uL (1.8-6.4); PLATELET CLUMPS PRESENT - PLATELET COUNT APPEARS ADQ.
[2017-02-06 18:26] LABS: ADD MIUA? YES; BILIRUBIN NEGATIVE; BLOOD SMALL; COLOR YELLOW ((YELLOW)); GLUCOSE (STRIP) NEGATIVE; KETONES NEGATIVE; LEUKOCYTES LARGE; NITRITE NEGATIVE; PROTEIN (STRIP) 30; UROBILINOGEN 0.2 MG/DL (0.2-1.0)
[2017-02-06 18:38] LABS: BACTERIA NONE SEEN /HPF; EPITHELIAL CELLS 1+ /HPF; MUCUS TRACE /LPF; UCUL ADDED? YES; WHITE BLOOD CELLS 20-30 /HPF (0-5)
[2017-02-06 19:01] LABS: SPECIFIC GRAVITY 1.068 (1.000-1.030)
[2017-02-06] MEDS ORDERED: JANTOVEN2 MG PO (19:21)
[2017-02-06] MEDS ORDERED: JANTOVEN2.5 MG PO (19:22)
[2017-02-06] MEDS ORDERED: LEVAQUIN750 MG PO (19:26)
[2017-02-06] MEDS ORDERED: MAXIPIME1 GM IM (19:32)
[2017-02-06 20:24] VITALS: BP 175/97
[2017-02-06 20:43] VITALS: BP 154/97
[2017-02-06 21:58] LABS: POINT-OF-CARE METER ID UU14208753
[2017-02-06 22:30] VITALS: BP 169/72
[2017-02-06 23:19] VITALS: BP 197/77
[2017-02-06 23:22] LABS: METH RESISTANT S AUREUS PCR NEGATIVE (NEGATIVE)
[2017-02-06 23:24] LABS: PROBE CHECK PASS; SPECIMEN PROCESSING CONTROL PASS
[2017-02-07] VITALS (13 sets, daily range): BP systolic 117–182; BP diastolic 55–85
[2017-02-07] MEDS ORDERED: ROXICODONE5 MG PO (02:14)
[2017-02-07] MEDS ORDERED: VALIUM2 MG PO (02:14)
[2017-02-07] MEDS ORDERED: IMURAN50 MG PO (02:14)
[2017-02-07] MEDS ORDERED: ZOFRAN4 MG PO (02:16)
[2017-02-07] MEDS ORDERED: ACETAMINOPHEN325 M1 PO (02:16)
[2017-02-07 06:25] LABS: HEMATOCRIT 29.3 % (36.0-46.0); MCH 29.1 PG (29.0-34.0); MCHC 31.1 G/DL (30.0-36.0); MCV 93.6 FL (83-99); MEAN PLAT.VOLUME 11.2 uM^3 (9.5-12.4); RBC DIS.WIDTH-CV 17.2 % (11.8-14.6); RBC DIS.WIDTH-SD 59.3 % (39-53); RED BLOOD COUNT 3.13 M/uL (3.80-5.20); WHITE BLOOD COUNT 11.6 K/uL (4.1-10.2)
[2017-02-07 06:27] LABS: PLATELET COUNT 272 K/uL (156-360)
[2017-02-07 06:53] LABS: INTER. NORMALIZED RATIO 1.5; PROTHROMBIN TIME 16.8 SEC (10.2-12.9)
[2017-02-07 06:58] LABS: ANION GAP 10 MEQ/L (2-14); CHLORIDE 104 MEQ/L (99-109); GFR ESTIMATE (CALCULATED) > 59 mL/min/; GLUCOSE 90 mg/dL (70-99); POTASSIUM 3.1 MEQ/L (3.7-5.4); SAMPLE HEMOLYSIS CHECK 0; SAMPLE ICTERIC CHECK 0; SAMPLE LIPEMIA CHECK 0; SODIUM 145 MEQ/L (136-147); UREA NITROGEN (BUN) 7 mg/dL (9-23)
[2017-02-07 08:19] LABS: MAGNESIUM 1.8 mg/dl (1.3-2.7)
[2017-02-07 12:01] LABS: POINT-OF-CARE METER ID UU14208753
[2017-02-08 03:29] VITALS: BP 112/52
[2017-02-08 08:11] VITALS: BP 91/54
[2017-02-08 08:56] LABS: INTER. NORMALIZED RATIO 1.3; PROTHROMBIN TIME 15.4 SEC (10.2-12.9)
[2017-02-08 08:57] LABS: POINT-OF-CARE METER ID UU14117124
[2017-02-08 08:58] LABS: HEMATOCRIT 27.8 % (36.0-46.0); MCH 28.9 PG (29.0-34.0); MCHC 29.5 G/DL (30.0-36.0); MEAN PLAT.VOLUME 11.3 uM^3 (9.5-12.4); PLATELET COUNT 264 K/uL (156-360); RBC DIS.WIDTH-CV 17.1 % (11.8-14.6); RBC DIS.WIDTH-SD 62.2 % (39-53); RED BLOOD COUNT 2.84 M/uL (3.80-5.20); WHITE BLOOD COUNT 8.1 K/uL (4.1-10.2)
[2017-02-08 09:08] LABS: ANION GAP 6 MEQ/L (2-14); CHLORIDE 107 MEQ/L (99-109); POTASSIUM 3.4 MEQ/L (3.7-5.4); SAMPLE HEMOLYSIS CHECK 0; SAMPLE ICTERIC CHECK 0; SAMPLE LIPEMIA CHECK 0; SODIUM 145 MEQ/L (136-147)
[2017-02-08 09:12] LABS: MCV 97.9 FL (83-99)
[2017-02-08 09:14] LABS: GFR ESTIMATE (CALCULATED) > 59 mL/min/; GLUCOSE 75 mg/dL (70-99); UREA NITROGEN (BUN) 11 mg/dL (9-23)
[2017-02-08 16:11] VITALS: BP 113/59
[2017-02-08 19:49] VITALS: BP 113/56
[2017-02-08 23:04] VITALS: BP 116/54
[2017-02-09 05:33] VITALS: BP 118/57
[2017-02-09 07:57] VITALS: BP 115/56
[2017-02-09 11:14] VITALS: BP 115/57
[2017-02-09 16:20] VITALS: BP 132/60
[2017-02-09 17:00] LABS: INTER. NORMALIZED RATIO 1.4; PROTHROMBIN TIME 16.1 SEC (10.2-12.9)
[2017-02-09 19:34] VITALS: BP 139/62
[2017-02-10] VITALS (7 sets, daily range): BP systolic 111–137; BP diastolic 55–67
[2017-02-10 07:53] LABS: HEMATOCRIT 27.8 % (36.0-46.0); MCH 27.9 PG (29.0-34.0); MCHC 28.4 G/DL (30.0-36.0); MCV 98.2 FL (83-99); MEAN PLAT.VOLUME 10.4 uM^3 (9.5-12.4); PLATELET COUNT 320 K/uL (156-360); RBC DIS.WIDTH-CV 16.6 % (11.8-14.6); RBC DIS.WIDTH-SD 60.7 % (39-53); RED BLOOD COUNT 2.83 M/uL (3.80-5.20); WHITE BLOOD COUNT 5.7 K/uL (4.1-10.2)
[2017-02-10 08:02] LABS: INTER. NORMALIZED RATIO 1.5; PROTHROMBIN TIME 16.8 SEC (10.2-12.9)
[2017-02-10 08:38] LABS: ANION GAP 9 MEQ/L (2-14); CHLORIDE 111 MEQ/L (99-109); GFR ESTIMATE (CALCULATED) > 59 mL/min/; GLUCOSE 82 mg/dL (70-99); POTASSIUM 3.5 MEQ/L (3.7-5.4); SAMPLE HEMOLYSIS CHECK 0; SAMPLE ICTERIC CHECK 0; SAMPLE LIPEMIA CHECK 0; SODIUM 146 MEQ/L (136-147); UREA NITROGEN (BUN) 9 mg/dL (9-23)
[2017-02-10 10:10] LABS: MAGNESIUM 1.9 mg/dl (1.3-2.7)
[2017-02-10] MEDS ORDERED: COUMADIN5 MG PO (14:35)
[2017-02-11 04:23] VITALS: BP 129/60
[2017-02-11 06:13] LABS: MCH 27.9 PG (29.0-34.0); MCHC 28.9 G/DL (30.0-36.0); MCV 96.6 FL (83-99); MEAN PLAT.VOLUME 11.1 uM^3 (9.5-12.4); PLATELET COUNT 400 K/uL (156-360); RBC DIS.WIDTH-CV 16.6 % (11.8-14.6); WHITE BLOOD COUNT 5.8 K/uL (4.1-10.2)
[2017-02-11 06:15] LABS: INTER. NORMALIZED RATIO 1.7; PROTHROMBIN TIME 19.1 SEC (10.2-12.9)
[2017-02-11 06:34] LABS: ANION GAP 7 MEQ/L (2-14); CHLORIDE 113 MEQ/L (99-109); GFR ESTIMATE (CALCULATED) > 59 mL/min/; GLUCOSE 84 mg/dL (70-99); POTASSIUM 3.7 MEQ/L (3.7-5.4); SAMPLE HEMOLYSIS CHECK 0; SAMPLE ICTERIC CHECK 0; SAMPLE LIPEMIA CHECK 0; SODIUM 147 MEQ/L (136-147); UREA NITROGEN (BUN) 9 mg/dL (9-23)
[2017-02-11 07:37] VITALS: BP 122/78
[2017-02-11 10:59] VITALS: BP 117/65
[2017-02-11 15:02] VITALS: BP 129/60
[2017-02-11] MEDS ORDERED: MAXIPIME1 GM IM (16:58)
[2017-02-11] MEDS ORDERED: FLAGYL500 MG/100 IV (16:58)
[2017-02-11] MEDS ORDERED: COUMADIN2.5 MG PO (16:58)
== END 2017-02-11 20:22 | DRG 872 ==
LOC: EME 15:48 → 3EAST 19:40 → EDOF 19:40 → ENRESERV 19:42 → 3EAST 21:15
PROVIDERS: Emergency Medicine; Hospitalist; Nurse Practitioner Adult Health; Physician Assistant; Radiology Diagnostic Radiology
PROC: 0F9430Z Drainage of Gallbladder with Drainage Device, Percutaneous Approach (ICD-10-PCS; principal; 2017-02-07)
DX: A41.9 Sepsis, unspecified organism (principal); K81.9 Cholecystitis, unspecified; G40.909 Epilepsy, unspecified, not intractable, without status epilepticus; B96.5 Pseudomonas (aeruginosa) (mallei) (pseudomallei) as the cause of diseases classified elsewhere; F32.9 Major depressive disorder, single episode, unspecified; I10 Essential (primary) hypertension; K21.9 Gastro-esophageal reflux disease without esophagitis; E66.01 Morbid (severe) obesity due to excess calories; F41.9 Anxiety disorder, unspecified; D64.9 Anemia, unspecified; G47.33 Obstructive sleep apnea (adult) (pediatric); J43.9 Emphysema, unspecified; K81.0 Acute cholecystitis; N39.0 Urinary tract infection, site not specified; E87.6 Hypokalemia; R79.1 Abnormal coagulation profile; S30.0XXA Contusion of lower back and pelvis, initial encounter; Z16.19 Resistance to other specified beta lactam antibiotics; G61.0 Guillain-Barre syndrome; E11.9 Type 2 diabetes mellitus without complications; Z88.1 Allergy status to other antibiotic agents; Z88.0 Allergy status to penicillin; Z91.048 Other nonmedicinal substance allergy status; Z74.01 Bed confinement status; Z86.711 Personal history of pulmonary embolism; Z79.01 Long term (current) use of anticoagulants; Z79.899 Other long term (current) drug therapy; Z86.718 Personal history of other venous thrombosis and embolism; Z68.41 Body mass index [BMI] 40.0-44.9, adult
CPT/HCPCS: 49406; 74177; 80048; 80053; 81003; 82948; 83605; 83690; 83735; 85025; 85027; 85610; 85730; 86850; 86900; 86901; 87040; 87070; 87075; 87077; 87086; 87186; 87205; 87641; 93005; 94660; 94799; 99281; 99285; C1769; J0692; J0696; J1650; J3010; J3430; J3480; J7030; J7050; J7500; P9017; S0028; S0030

== ENCOUNTER → 2017-02-25 | Outpatient (CLI) | payer OTHER ==
[~2017-02-25] MED LIST changes: +FLAGYL500 MG/100 IV; +JANTOVEN2 MG PO; +JANTOVEN2.5 MG PO; +LEVAQUIN750 MG PO; +MAXIPIME1 GM IM; +VALIUM2 MG PO
== END ==
LOC: RAD 10:00
DX: N20.0 Calculus of kidney (principal); K76.0 Fatty (change of) liver, not elsewhere classified; Z97.8 Presence of other specified devices
CPT/HCPCS: 74177

== ENCOUNTER 2017-03-14 14:09 | Emergency (ER) | payer OTHER ==
[~2017-03-14] VITALS: Ht 162.6 cm; Wt 110.0 kg
[2017-03-14 15:25] LABS: HEMATOCRIT 33.2 % (36.0-46.0); MCH 28.3 PG (29.0-34.0); MCHC 30.7 G/DL (30.0-36.0); MCV 92.2 FL (83-99); PLATELET COUNT 429 K/uL (156-360); RBC DIS.WIDTH-CV 17.5 % (11.8-14.6); RBC DIS.WIDTH-SD 59.5 % (39-53); WHITE BLOOD COUNT 8.4 K/uL (4.1-10.2)
[2017-03-14 15:34] LABS: INTER. NORMALIZED RATIO 2.3; PROTHROMBIN TIME 26.3 SEC (10.2-12.9)
[2017-03-14 15:36] LABS: PTT 39.7 SEC (25-37)
[2017-03-14 15:37] LABS: CHLORIDE 102 mEq/L (99-109); POTASSIUM 4.1 mEq/L (3.7-5.4); SODIUM 141 mEq/L (136-147)
[2017-03-14 15:39] LABS: GLUCOSE 102 mg/dL (70-99)
[2017-03-14 15:41] LABS: ANION GAP 11 MEQ/L (2-14); TOTAL BILIRUBIN 0.3 mg/dL (0.0-1.0)
[2017-03-14 15:43] LABS: ALKALINE PHOSPHATASE 72 IU/L (3-129); GFR ESTIMATE (CALCULATED) > 59 mL/min/
[2017-03-14 15:44] LABS: UREA NITROGEN (BUN) 17 mg/dL (9-23)
[2017-03-14 19:09] LABS: ADD MIUA? YES; BILIRUBIN NEGATIVE; BLOOD NEGATIVE; COLOR YELLOW ((YELLOW)); GLUCOSE (STRIP) NEGATIVE; KETONES NEGATIVE; LEUKOCYTES TRACE; NITRITE NEGATIVE; PROTEIN (STRIP) NEGATIVE; SPECIFIC GRAVITY 1.028 (1.000-1.030); UROBILINOGEN 0.2 MG/DL (0.2-1.0)
[2017-03-14 19:12] LABS: BACTERIA NONE SEEN /HPF; EPITHELIAL CELLS NONE SEEN /HPF; MUCUS NONE SEEN /LPF; RED BLOOD CELLS 0-5 /HPF (0-5); UCUL ADDED? NO; WHITE BLOOD CELLS 0-5 /HPF (0-5)
[2017-03-14] MEDS ORDERED: DOXYCYCLINE HY100 MG PO (19:42)
[2017-03-14 21:35] VITALS: BP 137/70
== END 2017-03-14 21:35 ==
LOC: EME 14:09
PROVIDERS: Emergency Medicine
DX: L03.311 Cellulitis of abdominal wall (principal); R10.11 Right upper quadrant pain; E11.9 Type 2 diabetes mellitus without complications; I10 Essential (primary) hypertension; K21.9 Gastro-esophageal reflux disease without esophagitis; G40.909 Epilepsy, unspecified, not intractable, without status epilepticus; F41.9 Anxiety disorder, unspecified; Z86.711 Personal history of pulmonary embolism; Z88.8 Allergy status to other drugs, medicaments and biological substances; G47.30 Sleep apnea, unspecified; Z88.0 Allergy status to penicillin; Z88.1 Allergy status to other antibiotic agents; Z88.5 Allergy status to narcotic agent; Z88.6 Allergy status to analgesic agent
CPT/HCPCS: 71010; 71275; 74177; 80053; 81003; 83605; 85027; 85610; 85730; 87040; 87077; 87801; 99281; 99285; J7030

== ENCOUNTER → 2017-03-26 | Outpatient (CLI) | payer OTHER ==
[~2017-03-26] MED LIST changes: +DOXYCYCLINE HY100 MG PO
== END ==
LOC: RAD 03-24 13:00 → EDSTATUS 13:30 → RAD 13:32
PROC: 0FP430Z Removal of Drainage Device from Gallbladder, Percutaneous Approach (ICD-10-PCS; principal; 2017-03-26)
DX: K81.0 Acute cholecystitis (principal); Z93.8 Other artificial opening status